=== PATIENT | female | born 1970 | race Native Hawaiian/Other Pacific Islander ===

== ENCOUNTER 2017-02-17 17:55 | Emergency (ER) | payer OTHER ==
[~2017-02-17] VITALS: Ht 167.6 cm; Wt 104.3 kg
[2017-02-17] MEDS ORDERED: LISI20TA11 PO (18:22)
[2017-02-17 18:35] LABS: PLATELET COUNT 307 K/uL (152-353)
[2017-02-17 20:08] VITALS: BP 150/83; TEMP 97.9
== END 2017-02-17 20:08 | disposition home or self-care (01) ==
LOC: ED 17:55
PROVIDERS: Emergency Medicine
DX: T78.40XA Allergy, unspecified, initial encounter (principal)
CPT/HCPCS: 36415; 80053; 85027; 96360; 96372; 96375; 99284; J0171; J1100; J1200; J2780

== ENCOUNTER 2017-02-19 10:58 | Inpatient (IN) | payer OTHER ==
[2017-02-19] VITALS (7 sets, daily range): BP systolic 111–154; BP diastolic 62–127; TEMP 97.5–98; Ht 167.6 cm; Wt 101.7 kg
[~2017-02-19] VITALS: Ht 167.6 cm; Wt 101.7 kg
[~2017-02-19 10:58] MED LIST: LISI20TA11 PO
[2017-02-19 11:53] LABS: POTASSIUM 3.8 mmol/L (3.6-5.2); SODIUM 133 mmol/L (136-145)
[2017-02-19 11:55] LABS: PLATELET COUNT 315 K/uL (152-353)
--- NOTE | 2017-02-19 14:15 | NUR ---
Pt. ADMITTED TO ROOM [address] ELIAS. C/O HAVING RASHING X2 DAYS AGO CAME TO ER RECEIVED MEDICATION AND RASH GOT BWTTER. WOKE THIS AM ITHCHING AND WENT TO WORK STARTED TO SWELL. Pt. CAME TO THE ER. Pt. HAS RED RASH COVERING ABD, BACK, BUTTOCK, ARMS, LEGS, FACE, AND NECK. STATED HAD SOB AND LIPS WAS SWELLING IN THE BEGINNING.
[2017-02-20] VITALS: BP 128/50; TEMP 97.4
[2017-02-20 04:00] VITALS: BP 126/46; TEMP 98
[2017-02-20 05:55] LABS: PLATELET COUNT 265 K/uL (152-353)
[2017-02-20 06:05] LABS: POTASSIUM 3.9 mmol/L (3.6-5.2); SODIUM 133 mmol/L (136-145)
[2017-02-20 08:00] VITALS: BP 145/60; TEMP 97.6
[2017-02-20 11:58] VITALS: BP 150/58; TEMP 97.5
[2017-02-20 16:26] VITALS: BP 182/88; TEMP 97.8
[2017-02-20 20:00] VITALS: BP 180/75; TEMP 97.6
--- NOTE | 2017-02-20 22:31 | NUR ---
02/20/17 4186 PT OUT AMBULATING IN HALLWAY WITH FAMILY.CC
[2017-02-21] VITALS: BP 148/66; TEMP 97.8
--- NOTE | 2017-02-21 03:00 | NUR ---
02/21/17 0255 STAT GLUCOSE DRAWN ELEVATED BLOOD SUGAR 472 SENT TO LAB.CC
[2017-02-21 03:03] LABS: PLATELET COUNT 265 K/uL (152-353)
[2017-02-21 03:16] LABS: SODIUM 129 mmol/L (136-145)
--- NOTE | 2017-02-21 03:29 | NUR ---
02/21/17319 DR. ESPAÑA NOTIFIED OF GLUCOSE RESULTS REPORTED FROM LAB WHICH IS 453.NEW ORDER TO CONTINUE SLIDING SCALE GIVE 10 UNITS NOW.CC 02/21/17321 10 UNITS GIVEN IN ABDOMEN OF NOVOLOG TOLERATED WELL.CC
[2017-02-21 04:00] VITALS: BP 127/55; TEMP 97.6
[2017-02-21 08:07] VITALS: BP 156/58; TEMP 97.8
[2017-02-21 12:00] VITALS: BP 165/71; TEMP 97.8
[2017-02-21 16:00] VITALS: BP 184/73; TEMP 97.8
[2017-02-21 20:00] VITALS: BP 168/81; TEMP 97.6
--- NOTE | 2017-02-21 23:35 | NUR ---
02/21/17 5468 TREATED BLOOD SUGAR 288 2 UNITS NOVOLOG.CC
[2017-02-22] VITALS: BP 175/86; TEMP 98
[2017-02-22 04:00] VITALS: BP 130/67; TEMP 98.7
--- NOTE | 2017-02-22 06:12 | NUR ---
02/22/17 0600 VOIDED 8 TIMES NO BM.CC
[2017-02-22 06:35] LABS: PLATELET COUNT 303 K/uL (152-353)
[2017-02-22 08:00] VITALS: BP 135/70; TEMP 98.1
[2017-02-22 08:31] LABS: SODIUM 133 mmol/L (136-145)
[2017-02-22 12:00] VITALS: BP 137/84; TEMP 98.3
[2017-02-22 16:00] VITALS: BP 126/72; TEMP 98.5
[2017-02-22 20:03] VITALS: BP 139/68; TEMP 97.6
--- NOTE | 2017-02-22 21:19 | NUR ---
02/22/172109: PT C/O ITCHING. HAD TO GO TO ER TO GET VISTERIL. VISTERIL 25MG GIVEN IN R HIP/BUTTOCKS IM.
[2017-02-23] VITALS: BP 116/54; TEMP 97.9
[2017-02-23 04:00] VITALS: BP 106/61; TEMP 97.6
[2017-02-23 05:06] LABS: POTASSIUM 3.4 mmol/L (3.6-5.2); SODIUM 132 mmol/L (136-145)
[2017-02-23 05:09] LABS: PLATELET COUNT 275 K/uL (152-353)
[2017-02-23 08:00] VITALS: BP 148/75; TEMP 97.5
--- NOTE | 2017-02-23 11:12 | NUR ---
1045 RELEASE OF MEIDCAL REOCRDS OBTAINED PER DON AND FAXED TO [facility]. APPT MADE FOR [facility] AT 11:30. COPIES OF RX MADE FOR PT TO TAKE WITH HER TO APPT
--- NOTE | 2017-02-23 12:18 | NUR ---
1202 PT LEFT AMBUALTORY WITH FAMILY AND INSTRUCTIONS TO TAKE RX TO [facility] FOR EPI PEN PER SURYA BRIONES PHD
== END 2017-02-23 12:06 | disposition home or self-care (01) | DRG 916 ==
LOC: ED 10:58 → MED/SURG 13:00
DX: T78.2XXA Anaphylactic shock, unspecified, initial encounter (principal); E87.1 Hypo-osmolality and hyponatremia; T78.49XA Other allergy, initial encounter; R06.09 Other forms of dyspnea; F41.8 Other specified anxiety disorders; E11.65 Type 2 diabetes mellitus with hyperglycemia
CPT/HCPCS: 36415; 80053; 81000; 82948; 83036; 83735; 85027; 85651; 96360; 96365; 96366; 96372; 96375; 96376; 99284; J0171; J1200; J2060; J2920; J2930; J3410; S0028

== ENCOUNTER 2017-08-02 14:50 | Emergency (ER) | payer OTHER ==
[~2017-08-02] VITALS: Ht 170.2 cm; Wt 102.5 kg
[2017-08-02 15:00] VITALS: TEMP 97.6
[2017-08-02 16:08] LABS: PLATELET COUNT 341 K/uL (152-353)
[2017-08-02 17:10] VITALS: BP 174/89
== END 2017-08-02 17:17 | disposition home or self-care (01) ==
LOC: ED 14:50
PROVIDERS: Family Medicine
DX: R21 Rash and other nonspecific skin eruption (principal); B02.9 Zoster without complications
CPT/HCPCS: 36415; 80053; 85027; 96374; 96375; 99284; J1200; J1885; J2930